=== PATIENT | female | born 1970 | race Caucasian/White ===

== ENCOUNTER 2017-04-29 22:11 | Emergency (ER) | payer BC, OTHER ==
[~2017-04-29] VITALS: Ht 160 cm; Wt 59.1 kg
[2017-04-29] MEDS ORDERED: ASPIRIN 81 MG CHEW TABLET PO ONE (22:45)
[2017-04-29 22:58] LABS: VENOUS BASE EXCESS 0.2 (-2.0-2.0); VENOUS O2 SATURATION 49.3 % (60.0-80.0); VENOUS PARTIAL PRESSURE CO2 45.4 mmHg (38.0-50.0); VENOUS PARTIAL PRESSURE O2 27.1 mmHg (30.0-50.0); VENOUS STANDARD HCO3 23.5 MEQ/L; VENOUS TOTAL CO2 27.2 MEQ/L (24.0-28.0)
[2017-04-29 23:06] LABS: BASO # 0.1 10^3/uL (0.0-0.2); BASO % 0.7 % (0.0-1.0); EOS # 0.2 10^3/uL (0.0-0.50); EOS % 2.9 % (0.0-3.0); IMMATURE GRANULOCYTE % 0.4 % (0-0); LYMPH # 2.5 10^3/uL (1.5-4.5); LYMPH % 30.2 % (24.0-44.0); MEAN CORPUSCULAR HEMOGLOBIN 30.3 pg (27.0-33.0); MEAN CORPUSCULAR HGB CONC 33.1 g/dl (32.0-36.5); MEAN CORPUSCULAR VOLUME 91.6 fl (80.0-96.0); MONO # 0.8 10^3/uL (0.0-0.8); MONO % 9.9 % (0.0-5.0); NEUTROPHILS # 4.7 10^3/uL (1.8-7.7); NEUTROPHILS % 55.9 % (36.0-66.0); PLATELET COUNT, AUTOMATED 287 10^3/uL (150-450); RED CELL DISTRIBUTION WIDTH 12.5 % (11.5-14.5); WHITE BLOOD COUNT 8.4 10^3/uL (4.0-10.0)
[2017-04-29 23:19] LABS: INR 0.99
[2017-04-29 23:24] LABS: ALBUMIN 3.7 GM/DL (3.2-5.2); ALKALINE PHOSPHATASE 68 U/L (45-117); ALT/SGPT 22 U/L (12-78); ANION GAP 4 MEQ/L (8-16); AST/SGOT 15 U/L (7-37); BILIRUBIN,DIRECT < 0.1 MG/DL (0.0-0.2); BILIRUBIN,TOTAL 0.2 MG/DL (0.2-1.0); BLOOD UREA NITROGEN 19 MG/DL (7-18); CALCIUM LEVEL 8.7 MG/DL (8.5-10.1); CARBON DIOXIDE LEVEL 29 MEQ/L (21-32); CHLORIDE LEVEL 106 MEQ/L (98-107); CREATININE FOR GFR 0.89 MG/DL (0.55-1.02); FREE T4 0.96 NG/DL (0.76-1.46); GLOMERULAR FILTRATION RATE > 60.0 (>58); GLUCOSE, FASTING 85 MG/DL (70-105); POTASSIUM SERUM 3.7 MEQ/L (3.5-5.1); SODIUM LEVEL 139 MEQ/L (136-145); TOTAL PROTEIN 7.8 GM/DL (6.4-8.2)
[2017-04-29] MEDS ORDERED: ASPI81TA85 PO (23:48)
[2017-04-30 00:07] VITALS: BP 125/61
--- NOTE | 2017-04-30 01:16 | REP ---
Clinical: Chest pain . Comparison: None . Technique: PA and lateral. Findings: The mediastinum and cardiac silhouette are normal. The lung combs are clear and without acute consolidation, effusion, or pneumothorax. The skeletal structures are intact and normal. Impression: 1. No acute cardiopulmonary process. Signed by Man Hays MD 04/29/2017 10:08 P
--- NOTE | 2017-04-30 08:45 | ECGEPIP ---
Stationary ECG Study [facility] - ED Test Date: 2017-04-29 Pat Name: SERGIO HASKINS Department: Room: - Gender: F Docketing Specialist: PuentesB: [id number] Requested By: SELENE Tucker Order Number: [id number] Reading MD: Anna Higuera Measurements Intervals Stewart Rate: 73 P: 77 PA: 187 QRS: 52 QRSD: 87 T: 41 QT: 392 QTc: 433 Interpretive Statements SINUS RHYTHM NO PRIOR FOR COMPARISON Electronically Signed On 04-30-2017 8:45:20 EST by Anna Higuera
== END 2017-04-30 00:18 | disposition home or self-care (01) ==
LOC: M ED 22:11
DX: R07.89 Other chest pain (principal); Z79.82 Long term (current) use of aspirin

== ENCOUNTER → 2023-08-09 | Outpatient (REF) | payer OTHER ==
[~2023-08-09] MED LIST: ASPI81TA86 PO
== END ==
LOC: M LAB REF 14:59
PROVIDERS: ATTEND Surgery
DX: D48.5 Neoplasm of uncertain behavior of skin (principal)